=== PATIENT | female | born 1980 | race Caucasian/White ===

== ENCOUNTER 2016-08-27 22:20 | Emergency (ER) | payer MEDICAID ==
[~2016-08-27] VITALS: Ht 160 cm; Wt 96.4 kg
[~2016-08-27 22:20] MED LIST: BUPR200T2 PO; CLON-275 PO
[2016-08-27] MEDS ORDERED: CEFTRIAXONE 250 MG IM ONE (23:30)
[2016-08-27] MEDS ORDERED: AZITHROMYCIN 500 MG TABLET PO ONE (23:30)
[2016-08-28 00:15] LABS: HCG UR OBC PASS; PATH.CAST-FLAG NOT PRESENT; SPERM-FLAG NOT PRESENT; SRC-FLAG NOT PRESENT; XTAL-FLAG NOT PRESENT; YLC-FLAG NOT PRESENT
[2016-08-28] MEDS ORDERED: AZITHROMYCIN 500 MG TABLET ONE (01:39)
[2016-08-28] MEDS ORDERED: CEFTRIAXONE 250 MG ONE (01:39)
[2016-08-28] MEDS ORDERED: LIDOCAINE 1%, 20ML ONE (01:39)
[2016-08-28 02:44] VITALS: BP 139/75
== END 2016-08-28 02:46 | disposition home or self-care (01) ==
LOC: ED 23:59
DX: A59.09 Other urogenital trichomoniasis (principal); A56.09 Other chlamydial infection of lower genitourinary tract; A54.03 Gonococcal cervicitis, unspecified; N89.8 Other specified noninflammatory disorders of vagina
CPT/HCPCS: 81001; 81025; 87086; 87210; 87491; 87591; 87808; 96372; 99284; J0696

== ENCOUNTER 2017-01-11 00:49 | Emergency (ER) | payer MEDICAID ==
[~2017-01-11] VITALS: Ht 157.5 cm; Wt 92.1 kg
[2017-01-11] MEDS ORDERED: METH20TA PO (01:10)
[2017-01-11] MEDS ORDERED: HYDROcodone/APAP 5/325 TABLET PO STA (01:34)
[2017-01-11] MEDS ORDERED: HYDROcodone/APAP 5/325 TABLET ONE (01:46)
[2017-01-11] MEDS ORDERED: DIAZEPAM 5 MG TABLET ONE (01:46)
[2017-01-11] MEDS ORDERED: ONDANSETRON ODT 4 MG ONE (01:47)
[2017-01-11] MEDS ORDERED: DIAZEPAM 5 MG TABLET PO ONE (02:00)
[2017-01-11] MEDS ORDERED: ONDANSETRON ODT 4 MG PO ONE (02:00)
[2017-01-11 02:27] VITALS: BP 112/69
== END 2017-01-11 03:29 | disposition home or self-care (01) ==
LOC: ED 01:19
DX: S40.211A Abrasion of right shoulder, initial encounter (principal); S30.0XXA Contusion of lower back and pelvis, initial encounter; S09.90XA Unspecified injury of head, initial encounter; F17.210 Nicotine dependence, cigarettes, uncomplicated; V43.62XA Car passenger injured in collision with other type car in traffic accident, initial encounter; Y93.89 Activity, other specified; Y99.8 Other external cause status; Y92.481 Parking lot as the place of occurrence of the external cause
CPT/HCPCS: 70450; 72190; 99284; Q0162

== ENCOUNTER 2017-07-04 22:28 | Emergency (ER) | payer MEDICAID ==
[~2017-07-04] VITALS: Ht 160 cm; Wt 92.4 kg
[~2017-07-04 22:28] MED LIST changes: +METH20TA PO
[2017-07-04 22:30] VITALS: BP 147/89
[2017-07-04] MEDS ORDERED: IBUPROFEN 800 MG TABLET PO STA (22:54)
[2017-07-04] MEDS ORDERED: DEXAMETHASONE 4 MG TABLET PO STA (22:54)
[2017-07-04] MEDS ORDERED: ACETAMINOPHEN 325 MG TABLET ONE (22:59)
[2017-07-04] MEDS ORDERED: DEXAMETHASONE 4 MG TABLET ONE (22:59)
[2017-07-04] MEDS ORDERED: IBUPROFEN 200 MG TABLET ONE (23:00)
[2017-07-04] MEDS ORDERED: ACETAMINOPHEN 325 MG TABLET PO ONE (23:00)
[2017-07-04] MEDS ORDERED: IBUPROFEN 200 MG TABLET PO STA (23:07)
== END 2017-07-05 00:58 | disposition home or self-care (01) ==
LOC: ED 23:07
DX: J20.9 Acute bronchitis, unspecified (principal); J02.8 Acute pharyngitis due to other specified organisms; B97.89 Other viral agents as the cause of diseases classified elsewhere
CPT/HCPCS: 71046; 99284

== ENCOUNTER 2017-08-24 23:17 | Emergency (ER) | payer MEDICAID ==
[~2017-08-24] VITALS: Ht 160 cm; Wt 93.0 kg
[2017-08-24 23:23] VITALS: BP 142/97
[2017-08-25] MEDS ORDERED: KETOROLAC 30 MG/1 ML ONE (00:14)
[2017-08-25] MEDS ORDERED: METHOCARBAMOL 750 MG TABLET ONE (00:14)
[2017-08-25] MEDS ORDERED: METHOCARBAMOL 750 MG TABLET PO ONE (00:30)
[2017-08-25] MEDS ORDERED: KETOROLAC 30 MG/1 ML IM ONE (00:30)
== END 2017-08-25 00:35 | disposition home or self-care (01) ==
LOC: ED 23:46
DX: S39.012A Strain of muscle, fascia and tendon of lower back, initial encounter (principal); X58.XXXA Exposure to other specified factors, initial encounter; Y93.89 Activity, other specified; Y99.8 Other external cause status; Y92.89 Other specified places as the place of occurrence of the external cause
CPT/HCPCS: 96372; 99283; J1885

== ENCOUNTER 2019-05-22 18:40 | Emergency (ER) | payer MEDICAID ==
[~2019-05-22] VITALS: Ht 160 cm; Wt 95.5 kg
[2019-05-22 18:43] VITALS: BP 159/99
== END 2019-05-22 20:33 | disposition home or self-care (01) ==
LOC: ED 19:27
DX: F41.1 Generalized anxiety disorder (principal); Z76.0 Encounter for issue of repeat prescription; F17.200 Nicotine dependence, unspecified, uncomplicated
CPT/HCPCS: 93005; 99283

== ENCOUNTER 2021-01-07 15:10 | Emergency (ER) | payer MEDICAID ==
[~2021-01-07] VITALS: Ht 160 cm; Wt 92.4 kg
[2021-01-07] MEDS ORDERED: AZITHROMYCIN 500 MG TABLET PO ONE (15:30)
[2021-01-07] MEDS ORDERED: CEFTRIAXONE 1,000 MG IM ONE (15:30)
[2021-01-07] MEDS ORDERED: CEFTRIAXONE 1,000 MG ONE (15:35)
[2021-01-07] MEDS ORDERED: AZITHROMYCIN 500 MG TABLET ONE (15:35)
[2021-01-07 15:47] VITALS: BP 131/78
--- NOTE | 2021-01-07 16:16 | NUR ---
LATE ENTRY DUE TO PT CARE. PT C/O OF STD SYMPTOMS AND NOT GETTING TX [facility] PT STATES HER INTIMATE PARTNER HAS STD ND WANTED TO BE TREATED FOR A STD. PT VSS. NADN. BREATHING EVEN AND UNLABORED. DENIES FEVER/CHILLS, N/V/D. BED IN LOW , RAILS ENGAGED, CALL LIGHT ON LAP. TOLERATED MEDICATIONS WELL. NO ADDITIONAL NEEDS OR QUESTIONS.
--- NOTE | 2021-01-07 16:17 | NUR ---
Patient/Caregiver given discharge instructions and they have confirmed that they understand the instructions. Patient ambulatory with steady gait. NAD, all questions answered appropriately, denies additional needs at this time. No personal belongings left in room after discharge.
== END 2021-01-07 16:19 | disposition home or self-care (01) ==
LOC: ED 16:00
DX: A56.09 Other chlamydial infection of lower genitourinary tract (principal)
CPT/HCPCS: 96372; 99283; J0696